=== PATIENT | female | born 1980 | race American Indian/Alaskan Native ===

== ENCOUNTER 2020-10-20 10:39 | Emergency (ER) | payer SELFPAY ==
[2020-10-20 10:48] VITALS: BP 156/92
--- NOTE | 2020-10-20 11:29 | Emergency Department Report ---
ED Eye Problem HPI - General Chief complaint: Eye Problems Stated complaint: PINK EYE Time Seen by Provider: 10/20/20 11:28 Source: patient Mode of arrival: Ambulatory Limitations: No Limitations - History of Present Illness Initial comments: Patient is a 40-year-old female presents emergency room complaints of right eye irritation and redness that began 2 days ago. She has associated crusting, drainage. She states that she does use contact lenses but removed them after she began noticing the irritation. She denies anything getting into the eye or foreign body sensation. She denies any vision changes. She denies anyone else with the same symptoms. She has a past medical history of hypertension. No allergies to medications. She states that she does have a eye doctor that she sees. - Related Data Previous Rx's Medication Instructions Recorded Last Taken Type Amoxicillin/K Clav Tab [Augmentin 1 tab PO BID #20 tablet 11/10/13 Unknown Rx 875MG] HYDROcodone/APAP 5-325 [[place] 1 each PO Q6HR PRN #20 tablet 11/10/13 Unknown Rx 5/325 mg] Ibuprofen [Motrin] 800 mg PO TID PRN #60 tablet 11/10/13 Unknown Rx Prednisone 40 mg PO QDAY #10 tablet 11/10/13 Unknown Rx levoFLOXacin [Levofloxacin] 1 drop OD DAILY 5 Days #1 bottle 10/20/20 Unknown Rx Allergies Allergy/AdvReac Type Severity Reaction Status Date / Time No Known Allergies Allergy Verified 10/20/20 10:42 ED Review of Systems ROS: Stated complaint: PINK EYE Other details as noted in HPI Comment: All other systems reviewed and negative ED Past Medical Hx - Past Medical History Hx Hypertension: Yes - Surgical History Additional Surgical History: tubal - Social History Smoking Status: Never Smoker Substance Use Type: None - Medications Home Medications: Home Medications Medication Instructions Recorded Confirmed Last Taken Type Amoxicillin/K Clav Tab [Augmentin 1 tab PO BID #20 tablet 11/10/13 Unknown Rx 875MG] HYDROcodone/APAP 5-325 [[place] 1 each PO Q6HR PRN #20 tablet 11/10/13 Unknown Rx 5/325 mg] Ibuprofen [Motrin] 800 mg PO TID PRN #60 tablet 11/10/13 Unknown Rx Prednisone 40 mg PO QDAY #10 tablet 11/10/13 Unknown Rx levoFLOXacin [Levofloxacin] 1 drop OD DAILY 5 Days #1 bottle 10/20/20 Unknown Rx ED Physical Exam - General Limitations: No Limitations General appearance: alert, in no apparent distress - Head Head exam: Present: atraumatic, normocephalic - Eye Eye exam: Present: PERRL, EOMI, conjunctival injection (right). Absent: periorbital swelling, periorbital tenderness - ENT ENT exam: Present: mucous membranes moist - Respiratory Respiratory exam: Absent: respiratory distress, accessory muscle use - Neurological Exam Neurological exam: Present: alert, oriented X3 - Psychiatric Psychiatric exam: Present: normal affect, normal mood, agitated - Skin Skin exam: Present: warm, dry, intact ED Course Vital Signs 10/20/20 10:47 Temperature 98.5 F Pulse Rate 99 H Respiratory 18 Rate Blood Pressure 156/92 O2 Sat by Pulse 96 Oximetry ED Medical Decision Making - Medical Decision Making Patient is a 40-year-old female presents emergency room complaints of right eye irritation and redness that began 2 days ago. She has associated crusting, drainage. She states that she does use contact lenses but removed them after she began noticing the irritation. She denies anything getting into the eye or foreign body sensation. She denies any vision changes. She denies anyone else with the same symptoms. She has a past medical history of hypertension. No allergies to medications. She states that she does have a eye doctor that she sees. VSS. on exam: Patient has right-sided conjunctival injection, EOMI, no pain with EOMI, no periorbital edema or erythema, PERRLA. Examination appears consistent with conjunctivitis. Patient given prescription for levofloxacin eyedrops. Advised patient Please use medication as prescribed. Please avoid rubbing the eyes. Change your bed sheets and pillowcases. Wash your hands frequently. Follow-up with your eye doctor. Return to emergency room for any new or worsening symptoms. Critical care attestation.: If time is entered above; I have spent that time in minutes in the direct care of this critically ill patient, excluding procedure time. ED Disposition Clinical Impression: Conjunctivitis Qualifiers: Conjunctivitis type: acute Acute conjunctivitis type: unspecified Laterality: right Qualified Code(s): H10.31 - Unspecified acute conjunctivitis, right eye Disposition: TO HOME OR SELFCARE Is pt being admited?: No Does the pt Need Aspirin: No Condition: Stable Instructions: Bacterial Conjunctivitis, Adult, [id number], Viral Conjunctivitis, Adult Additional Instructions: Please use medication as prescribed. Please avoid rubbing the eyes. Change your bed sheets and pillowcases. Wash your hands frequently. Follow-up with your eye doctor. Return to emergency room for any new or worsening symptoms. Prescriptions: levoFLOXacin [Levofloxacin] 1 drop OD DAILY 5 Days #1 bottle Referrals: your, eye doctor [Other] - 2-3 Days Time of Disposition: 11:34 Print Language: URUGUAYAN
== END 2020-10-20 12:13 | disposition home or self-care (01) ==
LOC: ED 10:39
DX: H10.9 Unspecified conjunctivitis (principal); I10 Essential (primary) hypertension; Z79.899 Other long term (current) drug therapy
CPT/HCPCS: 99282